=== PATIENT | female | born 1970 | race Native Hawaiian/Other Pacific Islander ===

== ENCOUNTER 2016-09-17 15:57 | Emergency (ER) | payer OTHER ==
[2016-09-17 16:04] VITALS: TEMP 98.5
[2016-09-17] MEDS ORDERED: SODIUM CHLORIDE 0.9% 1,000 ML IV ONE (17:01)
[2016-09-17 17:22] LABS: Basophils % (A) 0 %; CH 30.9; CHCM 34.3; Eosinophils # (A) 0.1 k/uL (0-0.7); Eosinophils % (A) 1 %; HGB 14.5 gm/dL (11.4-16.0); Luc # (Auto) 0.08; Luc % (Auto) 1; Lymphocytes # (A) 1.9 k/uL (1.0-4.8); Lymphocytes % (A) 16 %; MCH 30.4 pg (25.0-35.0); MCHC 33.6 g/dL (31.0-37.0); MCV 90.5 fL (80.0-100.0); Mean Platelet Volume 6.4; Monocytes # (A) 0.6 k/uL (0-1.0); Monocytes % (A) 5 %; Neutrophils # (A) 9.5 k/uL (1.3-7.7); Neutrophils % (A) 78 %; RBC 4.76 m/uL (3.80-5.40); RDW 12.9 % (11.5-15.5); WBC 12.2 k/uL (3.8-10.6); WBC (Perox) 12.46
[2016-09-17 17:30] LABS: Anion Gap 14 mmol/L; Blood Urea Nitrogen 11 mg/dL (7-17); Carbon Dioxide 27 mmol/L (22-30); Chloride 102 mmol/L (98-107); Glucose 126 mg/dL (74-99); Non-African American GFR(MDRD) 53 (>60 ml/min/1.73 sqM); Potassium 3.6 mmol/L (3.5-5.1); Sodium 143 mmol/L (137-145)
[2016-09-17 17:40] LABS: Amorphous Sediment,Urine Rare /hpf; Appearance,Urine Clear (Clear); Bacteria,Urine Occasional /hpf; Bilirubin,Urine Negative (Negative); Glucose,Urine (UA) Negative (Negative); Ketones,Urine Negative (Negative); Leukocyte Esterase,Urine Trace (Negative); Mucus,Urine Occasional /hpf; Nitrite,Urine Negative (Negative); PH, Urine 5.5 (5.0-8.0); Particle Count 4076; Protein,Urine Negative (Negative); RBC,Urine <1 /hpf (0-5); Specific Gravity,Urine 1.016 (1.001-1.035); Squamous Epithelial Cell,Urine 5 /hpf (0-4); UA Billing (MACRO vs. MICRO) MICRO; Urobilinogen,Urine <2.0 mg/dL (<2.0); WBC,Urine 4 /hpf (0-5)
--- NOTE | 2016-09-17 17:54 | ED ---
General Adult HPI - General Chief complaint: Extremity Injury, Lower Stated complaint: Almost syncope/Leg Pain Time Seen by Provider: 09/17/16 16:51 Source: patient, RN notes reviewed Mode of arrival: wheelchair Limitations: no limitations - History of Present Illness Initial comments: is a 46-year-old female presenting to the with chief complaint of feeling lightheaded while walking home from the doctor's today. Patient reports that she saw her primary care physician about a complaint of shaking legs while she fell as well as sleep with similar symptoms of restless leg syndrome and patient was discharged from her primary care provider with increased blood pressure medications. Patient reports that at that time she was given her legs started to feel somewhat shaky and she felt lightheaded and felt like she was unable to pass out. She didn't denies having any of the symptoms for. Patient does have a history of schizoaffective disorder. Patient denies any pain at this time. She denies any numbness or tingling in her lower extremities. She denies any lightheadedness or blurry vision at this time. - Related Data Home Medications Medication Instructions Recorded Confirmed ALPRAZolam [Xanax] 0.25 mg PO BID 09/17/16 09/17/16 Hydrochlorothiazide 25 mg PO DAILY 09/17/16 09/17/16 Lisinopril [Zestril] 10 mg PO BID 09/17/16 09/17/16 hydrALAZINE HCL [Apresoline] 50 mg PO TID 09/17/16 09/17/16 Previous Rx's Medication Instructions Recorded Loratadine [Claritin] 10 mg PO DAILY #14 tab 12/16/15 cloNIDine HCL [Catapres] 0.1 mg PO BID #14 tab 12/16/15 Allergies Allergy/AdvReac Type Severity Reaction Status Date / Time acetaminophen [From Vicodin] Allergy Unknown Verified 09/17/16 16:04 codeine Allergy Rash/Hives Verified 09/17/16 16:42 hydrocodone bitartrate Allergy Unknown Verified 09/17/16 16:04 [From Vicodin] Review of Systems ROS Statement: Those systems with pertinent positive or pertinent negative responses have been documented in the HPI. ROS Other: All systems not noted in ROS Statement are negative. Past Medical History Past Medical History: Asthma, Diabetes Mellitus, Hypertension, Thyroid Disorder History of Any Multi-Drug Resistant Organisms: None Reported Past Surgical History: Tonsillectomy Past Psychological History: Anxiety, Depression Smoking Status: Current some day smoker Past Alcohol Use History: None Reported Past Drug Use History: None Reported General Exam - General Exam Comments Initial Comments: TOR is a 46-year-old female. She does not appear to be in any acute distress. Limitations: no limitations General appearance: alert, in no apparent distress Head exam: Present: atraumatic, normocephalic, normal inspection Eye exam: Present: normal appearance, PERRL, EOMI. Absent: scleral icterus, conjunctival injection, periorbital swelling ENT exam: Present: normal exam, mucous membranes moist Neck exam: Present: normal inspection. Absent: tenderness, meningismus, lymphadenopathy Respiratory exam: Present: normal lung sounds bilaterally. Absent: respiratory distress, wheezes, rales, rhonchi, stridor Cardiovascular Exam: Present: regular rate, normal rhythm, normal heart sounds. Absent: systolic murmur, diastolic murmur, rubs, gallop, clicks GI/Abdominal exam: Present: soft, normal bowel sounds. Absent: distended, tenderness, guarding, rebound, rigid Extremities exam: Present: normal inspection, full ROM, normal capillary refill. Absent: tenderness, pedal edema, joint swelling, calf tenderness Back exam: Present: normal inspection Neurological exam: Present: alert, oriented X3, CN II-XII intact Psychiatric exam: Present: normal affect, normal mood Course Vital Signs 09/17/16 09/17/16 15:59 17:34 Temperature 98.5 F Pulse Rate 109 H Pulse Rate [ 95 Left Sitting] Pulse Rate [ 104 H Left Standing] Pulse Rate [ 84 Left Supine] Respiratory 18 16 Rate Blood Pressure 159/90 Blood Pressure 152/81 [Left Arm Sitting] Blood Pressure 128/84 [Left Arm Standing] Blood Pressure 138/75 [Left Arm Supine] O2 Sat by Pulse 98 97 Oximetry Medical Decision Making - Medical Decision Making Patient is a 46-year-old female presenting to the with a episode of syncope. She also reports symptoms of restless leg syndrome for a few weeks. Patient' s labs are reviewed and are all negative. Patient does have positive orthostatic hypertension. Patient was given 2 L bolus. Patient will be discharged at this time and instructed to follow-up with primary care provider in regards to symptoms of restless leg syndrome. Return parameters were discussed. - Lab Data Result diagrams: 09/17/16 17:10 09/17/16 17:10 Lab Results 09/17/16 09/17/16 09/17/16 Range/Units 17:10 17:10 17:21 WBC 12.2 H (3.8-10.6) k/uL RBC 4.76 (3.80-5.40) m/uL Hgb 14.5 (11.4-16.0) gm/dL Hct 43.0 (34.0-46.0) % MCV 90.5 (80.0-100.0) fL MCH 30.4 (25.0-35.0) pg MCHC 33.6 (31.0-37.0) g/dL RDW 12.9 (11.5-15.5) % Plt Count 261 (150-450) k/uL Neutrophils % 78 % Lymphocytes % 16 % Monocytes % 5 % Eosinophils % 1 % Basophils % 0 % Neutrophils # 9.5 H (1.3-7.7) k/uL Lymphocytes # 1.9 (1.0-4.8) k/uL Monocytes # 0.6 (0-1.0) k/uL Eosinophils # 0.1 (0-0.7) k/uL Basophils # 0.0 (0-0.2) k/uL Sodium 143 (137-145) mmol/L Potassium 3.6 (3.5-5.1) mmol/L Chloride 102 (98-107) mmol/L Carbon Dioxide 27 (22-30) mmol/L Anion Gap 14 mmol/L BUN 11 (7-17) mg/dL Creatinine 1.11 H (0.52-1.04) mg/dL Est GFR (MDRD) Af Amer >60 (>60 ml/min/1.73 sqM) Est GFR (MDRD) Non-Af 53 (>60 ml/min/1.73 sqM) Glucose 126 H (74-99) mg/dL Calcium 10.0 (8.4-10.2) mg/dL Urine Color Yellow Urine Appearance Clear (Clear) Urine pH 5.5 (5.0-8.0) Ur Specific [place] 1.016 (1.001-1.035) Urine Protein Negative (Negative) Urine Glucose (UA) Negative (Negative) Urine Ketones Negative (Negative) Urine Blood Negative (Negative) Urine Nitrate Negative (Negative) Urine Bilirubin Negative (Negative) Urine Urobilinogen <2.0 (<2.0) mg/dL Ur Leukocyte Esterase Trace H (Negative) Urine RBC <1 (0-5) /hpf Urine WBC 4 (0-5) /hpf Ur Squamous Epith Cells 5 H (0-4) /hpf Amorphous Sediment Rare H (None) /hpf Urine Bacteria Occasional H (None) /hpf Urine Mucus Occasional H (None) /hpf Urine Opiates Screen Not Detected (NotDetected) Ur Oxycodone Screen Not Detected (NotDetected) Urine Methadone Screen Not Detected (NotDetected) Ur Propoxyphene Screen Not Detected (NotDetected) Ur Barbiturates Screen Not Detected (NotDetected) U Tricyclic Antidepress Not Detected (NotDetected) Ur Phencyclidine Scrn Not Detected (NotDetected) Ur Amphetamines Screen Not Detected (NotDetected) U Methamphetamines Scrn Not Detected (NotDetected) U Benzodiazepines Scrn Detected H (NotDetected) Urine Cocaine Screen Not Detected (NotDetected) U Marijuana (THC) Screen Not Detected (NotDetected) 09/17/16 17:52 EKG shows normal sinus rhythm. No evidence of atrial or ventricular arrhythmias. Ventricular rate of 93 bpm. MD interval 160 ms. QRS duration 82 ms. QT/QTc is 342/425 ms. Disposition Clinical Impression: Orthostatic hypotension, Restless legs Disposition: HOME SELF-CARE Condition: Good Instructions: Syncope (ED), Restless Legs Syndrome (ED) Additional Instructions: Patient instructed to follow-up with primary care provider regards to restless legs. Patient also instructed follow-up with ophthalmology in regards to new glasses prescription. Patient is to return to the [facility] if any alarming signs or symptoms occur. Patient is to remain hydrated and to follow-up with primary care in 1-2 days. Time of Disposition: 18:07
[2016-09-17 18:17] VITALS: BP 128/94; PULSE 88; RESP 18
== END 2016-09-17 18:17 | disposition home or self-care (01) ==
LOC: EC 15:57
DX: I95.1 Orthostatic hypotension (principal); G25.81 Restless legs syndrome; F25.9 Schizoaffective disorder, unspecified; Z88.6 Allergy status to analgesic agent; Z88.5 Allergy status to narcotic agent; F41.9 Anxiety disorder, unspecified; F32.9 Major depressive disorder, single episode, unspecified; I10 Essential (primary) hypertension; F17.200 Nicotine dependence, unspecified, uncomplicated
CPT/HCPCS: 36415; 80048; 80306; 81001; 85025; 93005; 96360; 99284

== ENCOUNTER 2016-09-18 00:28 | Emergency (ER) | payer OTHER ==
[2016-09-18 00:35] VITALS: BP 123/82; PULSE 113; RESP 18; TEMP 98.4
--- NOTE | 2016-09-18 01:18 | ED ---
Dizziness HPI - General Chief Complaint: Syncope Stated Complaint: near syncope Time Seen by Provider: 09/18/16 00:45 Source: patient, RN notes reviewed Mode of arrival: wheelchair Limitations: no limitations - History of Present Illness Initial Comments: Patient is a 46-year-old feel presenting to the [facility] with chief complaint of near- syncope for the second time today. Patient was initially seen in the each see by myself and had a full workup and IV fluids. Patient reports that when she was going to sleep she felt like she was slightly dizzy and felt anxious. Patient reports that she is concerned that her risperidone has caused her to feel shaky and symptoms of lightheadedness. Patient reports that she has been taking this medication for approximately 1 year. Patient reports no dizziness or headache at this time. She denies any changes in her vision at this time. She states that she feels fine but was concerned about her previous symptoms and decided to come to the EC. - Related Data Home Medications Medication Instructions Recorded Confirmed ALPRAZolam [Xanax] 0.25 mg PO BID 09/17/16 09/17/16 Hydrochlorothiazide 25 mg PO DAILY 09/17/16 09/17/16 Lisinopril [Zestril] 10 mg PO BID 09/17/16 09/17/16 hydrALAZINE HCL [Apresoline] 50 mg PO TID 09/17/16 09/17/16 risperiDONE [RisperDAL] 2 mg PO HS 09/17/16 09/17/16 Previous Rx's Medication Instructions Recorded Loratadine [Claritin] 10 mg PO DAILY #14 tab 12/16/15 cloNIDine HCL [Catapres] 0.1 mg PO BID #14 tab 12/16/15 Allergies Allergy/AdvReac Type Severity Reaction Status Date / Time acetaminophen [From Vicodin] Allergy Unknown Verified 09/18/16 00:35 codeine Allergy Rash/Hives Verified 09/18/16 00:35 hydrocodone bitartrate Allergy Unknown Verified 09/18/16 00:35 [From Vicodin] Review of Systems ROS Statement: Those systems with pertinent positive or pertinent negative responses have been documented in the HPI. ROS Other: All systems not noted in ROS Statement are negative. Past Medical History Past Medical History: Asthma, Diabetes Mellitus, Hypertension, Thyroid Disorder History of Any Multi-Drug Resistant Organisms: None Reported Past Surgical History: Tonsillectomy Past Psychological History: Anxiety, Depression Smoking Status: Current some day smoker Past Alcohol Use History: None Reported Past Drug Use History: None Reported General Exam - General Exam Comments Initial Comments: Patient is a pleasant appearing 46-year-old female. She is on appear to be in any acute distress. Limitations: no limitations General appearance: alert, in no apparent distress Head exam: Present: atraumatic, normocephalic, normal inspection Eye exam: Present: normal appearance, PERRL, EOMI. Absent: scleral icterus, conjunctival injection, periorbital swelling ENT exam: Present: normal exam, mucous membranes moist Neck exam: Present: normal inspection. Absent: tenderness, meningismus, lymphadenopathy Respiratory exam: Present: normal lung sounds bilaterally. Absent: respiratory distress, wheezes, rales, rhonchi, stridor Cardiovascular Exam: Present: regular rate, normal rhythm, normal heart sounds. Absent: systolic murmur, diastolic murmur, rubs, gallop, clicks GI/Abdominal exam: Present: soft, normal bowel sounds. Absent: distended, tenderness, guarding, rebound, rigid Extremities exam: Present: normal inspection, full ROM, normal capillary refill. Absent: tenderness, pedal edema, joint swelling, calf tenderness Back exam: Present: normal inspection Neurological exam: Present: alert, oriented X3, CN II-XII intact Expanded Patient oriented to: Present: person, place, time Speech: Present: fluid speech Cranial nerves: EOM's Intact: Normal, Gag Reflex: Normal, Tongue Deviation: Normal Cerebellar function: Finger to Nose: Normal Upper motor neuron: Neal Neglect: Normal Sensory exam: Upper Extremity Light Touch: Normal, Lower Extremity Light Touch: Normal Motor strength exam: RUE: 5, LUE: 5, RLE: 5, LLE: 5 Eye Response: (4) open spontaneously Motor Response: (6) obeys commands Verbal Response: (5) oriented Carlos Total: 15 Psychiatric exam: Present: normal affect, normal mood Skin exam: Present: warm, dry, intact, normal color. Absent: rash Course Vital Signs 09/18/16 00:33 Temperature 98.4 F Pulse Rate 113 H Respiratory 18 Rate Blood Pressure 123/82 O2 Sat by Pulse 98 Oximetry Medical Decision Making - Medical Decision Making Patient is a 46-year-old female with chief complaint of near-syncope for the second time today. Her initial visit she was given a full workup and did have some positive orthostatic hyp hypotension. At that point patient was given fluid boluses. Patient also describes symptoms of restless leg syndrome. I discussed with the patient and we've exhausted all test while in the [facility] today. Is also discussed the patient's caregiver. Advised patient that she needs to follow-up with her neurologist, primary care physician as well as a possible bar pointer for tilt table test regards to this continued near-syncope and symptoms of orthostatic hypotension. I advise patient she needs remain hydrated. Patient declined having any further imaging or laboratory studies on the for the second time today. There is a possibility that her symptoms could be related to her psychiatric medication risperidone however I do not feel comfortable discontinuing this vacation for the patient. I advised her to follow-up with a psychiatrist. I discussed this case with Dr. Levin he is in agreement with the treatment plan and we will hold on doing any other labs or imaging studies at this time is patient is nonsymptomatic at this time. Return parameters were discussed and patient and patient's caregiver understand treatment plan will comply. Disposition Clinical Impression: Anxiousness, Paresthesias Disposition: HOME SELF-CARE Condition: Good Additional Instructions: Patient instructed to follow-up with primary care physician, neurologist as well as psychiatrist in regards to her symptoms. Patient is advised to continue to remain hydrated. Patient instructed to continue to use her Risperdal medication and do not discontinue until advised by a psychiatrist. Referrals: Anthony Ashford MD [Primary Care Provider] - 1-2 days Adore Khan MD [STAFF PHYSICIAN] - 1-2 days Traci Rider MD [Medical Doctor] - 1-2 days Time of Disposition: 01:16
== END 2016-09-18 01:25 | disposition home or self-care (01) ==
LOC: EC 00:28
DX: R55 Syncope and collapse (principal); F41.9 Anxiety disorder, unspecified; R42 Dizziness and giddiness; I10 Essential (primary) hypertension; F32.9 Major depressive disorder, single episode, unspecified; F17.200 Nicotine dependence, unspecified, uncomplicated; R20.9 Unspecified disturbances of skin sensation; I95.1 Orthostatic hypotension; Z79.899 Other long term (current) drug therapy; Z88.5 Allergy status to narcotic agent; Z88.6 Allergy status to analgesic agent
CPT/HCPCS: 70450; 99283

== ENCOUNTER → 2016-09-18 | Outpatient (CLI) | payer OTHER ==
--- NOTE | 2016-09-18 13:01 | CT ---
EXAMINATION TYPE: CT brain wo con DATE OF EXAM: 09/18/2016 12:56 PM COMPARISON: Previous study dated 11/24/2013. HISTORY: Syncope CT DLP: 961.00 mGycm Automated exposure control for dose reduction was used. FINDINGS: Central structures are midline. There is no evidence of hydrocephalus. No acute focal lesion, mass ef fect or midline shift is seen. I do not see evidence of intracranial blood. Visualized portions of the paranasal sinuses and mastoids are clear. No depressed skull fracture is s een. IMPRESSION: NORMAL CT SCAN OF THE BRAIN.
== END | disposition home or self-care (01) ==
LOC: RADCTMAIN 12:18
PROVIDERS: ATTEND Family Medicine
DX: R55 Syncope and collapse (principal)
CPT/HCPCS: 70450

== ENCOUNTER 2016-12-03 12:44 | Inpatient (IN) | payer MEDICAID ==
[2016-12-03] MEDS ORDERED: MAGNESIUM HYDROXIDE 2,400 MG/10 ML CUP PO PRN (13:14)
[2016-12-03] MEDS ORDERED: MAG HYDROX/AL HYDROX/SIMETH 30 ML CUP PO PRN (13:14)
[2016-12-03] MEDS ORDERED: ACETAMINOPHEN TAB 325 MG TAB PO PRN (13:14)
[2016-12-03] MEDS ORDERED: IPRATROPIUM-ALBUTEROL 3 ML NEB INHALATION PRN (13:42)
[2016-12-03] MEDS: hydrALAZINE HCL 50 MG TAB PO SCH ×2 (16:34→20:50)
[2016-12-03] MEDS: GENTAMICIN 0.3% OPHTH OINT 3.5 GM TUBE BOTH EYES SCH ×2 (16:34→16:38)
[2016-12-03 17:02] VITALS: BMI 31.4
[2016-12-03] MEDS: LISINOPRIL 10 MG TAB PO SCH (20:50)
[2016-12-03] MEDS: cloNIDine HCL 0.1 MG TAB PO SCH (20:50)
[2016-12-03] MEDS: METOPROLOL TARTRATE 50 MG TAB PO SCH (20:50)
[2016-12-03] MEDS: QUEtiapine 200 MG TAB PO SCH (20:50)
[2016-12-04] MEDS: GENTAMICIN 0.3% OPHTH OINT 3.5 GM TUBE BOTH EYES SCH ×4 (00:41→23:20)
[2016-12-04] MEDS ORDERED: NICOTINE 14MG/24HR PATCH TRANSDERM SCH (09:00)
[2016-12-04] MEDS: cloNIDine HCL 0.1 MG TAB PO SCH (09:37)
[2016-12-04] MEDS: HYDROCHLOROTHIAZIDE 25 MG TAB PO SCH (09:38)
[2016-12-04] MEDS: METOPROLOL TARTRATE 50 MG TAB PO SCH ×2 (09:38→20:35)
[2016-12-04] MEDS: hydrALAZINE HCL 50 MG TAB PO SCH ×3 (09:38→20:35)
[2016-12-04] MEDS: LISINOPRIL 10 MG TAB PO SCH ×2 (09:38→20:34)
[2016-12-04] MEDS: FLUTICASONE 50MCG/SPRAY NASAL 16GM EA NOSTRIL SCH (09:38)
[2016-12-04] MEDS: LORATADINE 10 MG TAB PO SCH (09:38)
[2016-12-04] MEDS: risperiDONE 2 MG TAB PO SCH (09:39)
[2016-12-04] MEDS: NICOTINE 14MG/24HR PATCH TRANSDERM SCH (09:39)
--- NOTE | 2016-12-04 16:16 | P.HP ---
Psychiatric H&P - . H&P Date: 12/04/16 History & Physical: IDENTIFYING DATA: Ms Gordon is a 46-year-old single female transferred from medicine service following an episode of acute encephalopathy. According to the medical record she was found by local police swimming in [facility] during inclement weather. She told the admitting physician that she had jumped out of the [place]. She was alert but confused. She was severely dehydrated and had acute renal dysfunction. She had elevated CK and early stage of rhabdomyolysis. HISTORY OF PRESENT ILLNESS: Aafter the acute encephalopathy cleared she was unable to explain the events that led to the hospitalization. On the day of her presentation [facility] she impulsively went for squamous [facility]. She was unable to explain the reason for going into the water. She denied that she had entered the water in a suicide attempt. She denied psychotic symptoms such as auditory or visual hallucinations, ideas reference, thought insertion, thought broadcasting or thought control. She denied that she has been drinking alcohol or using drugs to get high, help her sleep or change her mood. She denied that she had been noncompliant with prescribed medications. Her outpatient psychiatrist had reduced her medications recently; discontinue risperidone and decreasing the dose of Seroquel from 400 mg 200 mg per day. PAST PSYCHIATRIC HISTORY: According to the information from [facility] she has a history of a undifferentiated schizophrenia. Her last appointment appears to have been on 11/10/2016. Her only psychotropic medication was Seroquel 200 mg at bedtime. Her primary care provider prescribes Claritin 10 mg daily hydralazine 25 mg 3 times a day, lisinopril 10 mg twice a day and Xanax 0.25 one by mouth twice a day. She was transferred to this unit from the [facility] nursing [facility] on 12/05/2015. She had been arrested on several charges including assaulting a police sergeant, resisting arrest, disorderly person and open intoxicated in public space. She was confused and disoriented in nursing home. The police documents note that she " stood all night complaining he still looking at [place] for hours". The history and physical notes that prior to admission indicated that she had jumped into [facility]. PAST MEDICAL HISTORY: Her discharge diagnoses from medicine service included metabolic encephalopathy secondary to dehydration, acute renal failure secondary to dehydration, metabolic acidosis, elevated CK with rhabdomyolysis secondary to hypothermia and history of hypertension. ALLERGIES: Codeine SUBSTANCE USE HISTORY: She denied use of alcohol or drugs. She denied participation in a substance abuse treatment program. FAMILY PSYCHIATRIC/SUBSTANCE USE HISTORY: She is unaware of a family history of mental illness. LEGAL HISTORY: She was sentenced with assaulting a police sergeant and resisting arrest, disorderly person, only intoxicants in [facility] on 01/17/2016. OWI and operating without a license on person 10/31/2012 SOCIAL HISTORY: She lives alone in her own home and support her son. She shares custody with her boyfriend of her 13-year-old daughter. She is unemployed and her only income is child support payments. She has limited social supports. Her mother and her sister in [place].. MENTAL STATUS EXAM: She presented as a casually groomed 46-year-old male who was pleasant on approach. He denied contact and attended to the interview. She had no distinguishing features or prominent physical abnormalities. She had a blunted facial expression. She was alert and oriented to person, place and time. She showed slight psychomotor retardation but no abnormal involuntary movements. Her gait was slow but steady. Her speech was spontaneous with decreased rate, rhythm and volume. She had no articulation difficulties. Her affect was blunted but stable and appropriate. She denied suicidal ideation or wishes. She denied homicidal ideation. She denied depressive cognitions such as hopelessness, helplessness or worthlessness. She noted express obsessions, ruminations, phobias or ideas of reference. Her thinking was concrete. Associations were coherent and logical. She denied hallucinations and did not appear to responding to internal stimuli. Global impression of intellect is average to below. She has limited awareness of her illness. STRENGTHS: Stable housing, engagement with mental health treatment WEAKNESSES: Chronic mental illness affecting judgment. IMPRESSION: She is a 46-year-old woman with history of a chronic mental illness diagnosed schizophrenia. She presented to the Medical Center with acute encephalopathy secondary to acute dehydration and hypothermia. The encephalopathy has resolved. She is unable to explain the circumstances that led to this admission. She is unable explain the reason for going into the water and such weather as to produce hypothermia. She denies suicidal ideation , plan or intent. She is denying acute psychotic symptoms. I suspect that she became psychotic from noncompliance with medication.. PRINCIPLE DIAGNOSIS: Schizophrenia chronic undifferentiated type RECOMMENDATION: Begin inpatient psychiatric hospitalization. Continue Seroquel 200 mg at bedtime restart risperidone 2 mg daily. Continue DuoNeb 0.5 mg every 4 when necessary for shortness of breath, clonidine 0.1 mg twice a day, Flonase nasal spray, Genentech 0.3% ophthalmic ointment both eyes daily at bedtime, Apresoline 50 mg 3 times a day, HydroDIURIL 25 mg daily, Zestril 10 mg twice a day, Claritin 10 mg daily and Lopressor 50 mg twice a day. Obtain clinical information from [facility]. Consult medicine service for initial physical exam and medical history. Encourage participation in therapeutic groups and activities. Evaluate clinical status response to treatment on a daily basis. Allergies Allergy/AdvReac Type Severity Reaction Status Date / Time codeine Allergy Rash/Hives Verified 12/03/16 12:16 Vital Signs Temp 98.2 F 12/04/16 07:04 Pulse 63 12/04/16 07:04 Resp 16 12/04/16 07:04 BP 111/68 12/04/16 07:04 Pulse Ox Intake & Output 12/03/16 12/04/16 12/04/16 18:59 06:59 18:59 Weight 80.5 kg 12/04/16 08:39 12/04/16 13:34 12/04/16 16:13
[2016-12-04 16:57] LABS: Anion Gap 11 mmol/L; Blood Urea Nitrogen 14 mg/dL (7-17); Calcium 8.9 mg/dL (8.4-10.2); Carbon Dioxide 30 mmol/L (22-30); Chloride 103 mmol/L (98-107); Glucose 100 mg/dL (74-99); Non-African American GFR(MDRD) 56 (>60 ml/min/1.73 sqM); Potassium 4.3 mmol/L (3.5-5.1); Sodium 144 mmol/L (137-145)
--- NOTE | 2016-12-04 19:16 | CONS ---
DATE OF CONSULTATION: REASON FOR CONSULTATION: Management of hypertension and recommendations regarding antihypertensive medications and medical clearance. Patient is a 46-year-old with history of schizophrenia. Does have flat affect. Was admitted to psychiatric floor for acute psychosis. Patient's blood pressure was elevated during admission due to psychotic episodes. Patient is on multiple antihypertensive medications, including Lisinopril, hydrochlorothiazide, hydralazine, metoprolol and clonidine. Blood pressure is 111/72, because of which I am cutting down the clonidine, which has a lot of side effects and can contribute to depression as well. Just monitor the blood pressure. If at all her blood pressure goes up, beta dameon can be increased, and if her heart rate goes up, beta dameon can be increased. REVIEW OF SYSTEMS: CONSTITUTIONAL: No fever, no malaise, no fatigue. HEENT: No recent visual problems or hearing problems. Denied any sore throat. CARDIOVASCULAR: No chest pain, orthopnea, PND, no palpitations, no syncope. PULMONARY: No shortness of breath, no cough, no hemoptysis. GASTROINTESTINAL: No diarrhea, no nausea, no vomiting, no abdominal pain. Normoactive bowel sounds. NEUROLOGICAL: No headaches, no weakness, no numbness. HEMATOLOGICAL: Denies any bleeding or petechiae. GENITOURINARY: Denies any burning micturition, frequency, or urgency. MUSCULOSKELETAL/RHEUMATOLOGICAL: Denies any joint pain, swelling, or any muscle pain. ENDOCRINE: Denies any polyuria or polydipsia. PSYCHIATRY: Defer to the psychiatrist. The rest of the 14 point review of systems is negative. Past medical history is significant for: 1. Hypertension. 2. Schizophrenia. 3. Anxiety disorder. SOCIAL HISTORY: Patient does smoke. Denied any alcohol abuse or any drug abuse. FAMILY HISTORY: Significant for hypertension. PHYSICAL EXAMINATION: VITAL SIGNS: Temperature 98.3, pulse of 63, respiratory rate of 16. Blood pressure is 111/72. Saturating at 99% on room air. GENERAL: The patient is alert and oriented x3, not in any acute distress. Well developed, well nourished. HEENT: Pupils are round and equally reacting to light. EOMI. No scleral icterus. No conjunctival pallor. Normocephalic, atraumatic. No pharyngeal erythema. No thyromegaly. CARDIOVASCULAR: S1 and S2 present. No murmurs, rubs, or gallops. PULMONARY: Chest is clear to auscultation, no wheezing or crackles. ABDOMEN: Soft, nontender, nondistended, normoactive bowel sounds. No palpable organomegaly. MUSCULOSKELETAL: No joint swelling or deformity. EXTREMITIES: No cyanosis, clubbing, or pedal edema. NEUROLOGICAL: Gross neurological examination did not reveal any focal deficits. SKIN: No rashes. PSYCHIATRIC: Defer to Psychiatry. LABORATORY DATA: TSH is within normal limits. ASSESSMENT AND PLAN: 1. Hypertension. Management as mentioned in the interval history itself. Hold off on clonidine. Watch the blood pressure. 2. Schizophrenia with psychotic episode. Management as per primary service. 3. Nicotine abuse. Counseling was provided. Thank you for letting me participate in this patient's care. Will sign off. Please call us back if needed.
[2016-12-04] MEDS: QUEtiapine 200 MG TAB PO SCH (20:35)
[2016-12-05] MEDS: GENTAMICIN 0.3% OPHTH OINT 3.5 GM TUBE BOTH EYES SCH ×3 (09:22→23:31)
[2016-12-05] MEDS: NICOTINE 14MG/24HR PATCH TRANSDERM SCH (09:22)
[2016-12-05] MEDS: hydrALAZINE HCL 50 MG TAB PO SCH ×3 (09:23→20:42)
[2016-12-05] MEDS: LORATADINE 10 MG TAB PO SCH (09:23)
[2016-12-05] MEDS: HYDROCHLOROTHIAZIDE 25 MG TAB PO SCH (09:23)
[2016-12-05] MEDS: LISINOPRIL 10 MG TAB PO SCH ×2 (09:23→20:42)
[2016-12-05] MEDS: FLUTICASONE 50MCG/SPRAY NASAL 16GM EA NOSTRIL SCH (09:23)
[2016-12-05] MEDS: METOPROLOL TARTRATE 50 MG TAB PO SCH ×2 (09:24→20:42)
[2016-12-05] MEDS: risperiDONE 2 MG TAB PO SCH (09:24)
--- NOTE | 2016-12-05 19:41 | P.PN ---
Progress Note - Text Date of service: 12/05/2016 Chief complaint: "Feeling okay" Subjective: The patient has been seeing today as follow-up, chart reviewed, case discussed with the treatment team. The patient presented was very flat affect, guarded, evasive in her answers. She reports improvement of her symptoms and she was inquiring about discharge. She denies feeling suicidal and minimize her depression. She denies any auditory or visual hallucinations, and denies paranoid ideation. Patient minimized and anxiety and she stated that she feels anxious about being hospitalized. The patient looks paranoid, guarded, and probably preoccupied with internal stimuli. The patient denies any manic symptoms including sustained period of time with elevated or irritable mood, impulsive or irrational behavior, inflated self- esteem. Review of other systems: Patient denies any physical symptoms besides what has been mentioned above. No problems was presenting no chest pain reported today. Objective: Vitals has been reviewed. Mental status examination; Appearance: The patient appears older than stated age, adequately groomed, no specific features. Gait/posture: Normal gait and posture, Normal arm was swinging: No abnormal movements. Attitude and behavior: Not engaged, partially cooperative, intermittent eye contact. Motor activity: Decreased psychomotor activity Speech: Soft, slow Mood: Anxious Affect: Flat Thought form: Paranoid, but goal-directed, linear, coherent. Thought content: denies suicidal thoughts, denies homicidal thoughts, denies intentions or plans. Perception: Denies any auditory or visual hallucinations, but appears responding to internal stimuli. Attention: No impairment. Patient was able to repeat serial 7. Orientation: Patient patient was fully oriented to time place person and situation. Insight: Patient has limited insight about his psychiatric disorder. Judgment: Patient has limited judgment about his psychiatric treatment. Assessment: Unspecified psychosis. Rule out schizophrenia. Plan: Continue Seroquel 200 mg by mouth at bedtime for psychotic symptoms. Discontinue risperidone. Continue inpatient level of care for further stabilization and monitoring of psychiatric symptoms.
[2016-12-05] MEDS: QUEtiapine 200 MG TAB PO SCH (20:42)
[2016-12-06] MEDS: GENTAMICIN 0.3% OPHTH OINT 3.5 GM TUBE BOTH EYES SCH ×3 (09:36→23:53)
[2016-12-06] MEDS: FLUTICASONE 50MCG/SPRAY NASAL 16GM EA NOSTRIL SCH (09:36)
[2016-12-06] MEDS: NICOTINE 14MG/24HR PATCH TRANSDERM SCH (09:37)
[2016-12-06] MEDS: HYDROCHLOROTHIAZIDE 25 MG TAB PO SCH (09:38)
[2016-12-06] MEDS: LORATADINE 10 MG TAB PO SCH (09:38)
[2016-12-06] MEDS: LISINOPRIL 10 MG TAB PO SCH ×2 (09:38→20:41)
[2016-12-06] MEDS: METOPROLOL TARTRATE 50 MG TAB PO SCH ×2 (09:38→20:42)
[2016-12-06] MEDS: hydrALAZINE HCL 50 MG TAB PO SCH ×3 (09:38→20:41)
--- NOTE | 2016-12-06 17:03 | P.PN ---
Progress Note - Text Date of service: 12/06/2016 Chief complaint: "And feeling much better" Subjective: The patient has been seeing a today as follow-up, chart reviewed, case discussed with the treatment team. The patient continued to report stability of her mood and he denies depression, anxiety, or mood symptoms. Patient presented with flat affect, staring eye contact, and very evasive with one word answer for most of the questions. The patient denies any auditory or visual hallucinations, and denies paranoid ideation. Patient looks guarded, and probably preoccupied with internal stimuli. The patient denies any manic symptoms including sustained period of time with elevated or irritable mood, impulsive or irrational behavior, inflated self-esteem. Review of other systems: Patient denies any physical symptoms besides what has been mentioned above. No breathing problems , no chest pain reported today. Objective: Vitals has been reviewed. Mental status examination; Appearance: The patient appears older than stated age, adequately groomed, no specific features. Gait/posture: Normal gait and posture, Normal arm was swinging: No abnormal movements. Attitude and behavior: Not engaged, partially cooperative, staring eye contact. Motor activity: Decreased psychomotor activity Speech: Soft, slow Mood: Anxious Affect: Flat Thought form: Paranoid, guarded, but goal-directed, linear, coherent. Thought content: denies suicidal thoughts, denies homicidal thoughts, denies intentions or plans. Perception: Denies any auditory or visual hallucinations, but appears responding to internal stimuli. Attention: No impairment. Patient was able to repeat serial 7. Orientation: Patient patient was fully oriented to time place person and situation. Insight: Patient has limited insight about his psychiatric disorder. Judgment: Patient has limited judgment about his psychiatric treatment. Assessment: Unspecified psychosis. Rule out schizophrenia. Plan: Continue Seroquel 200 mg by mouth at bedtime for psychotic symptoms. Continue inpatient level of care for further stabilization and monitoring of psychiatric symptoms.
[2016-12-06] MEDS: QUEtiapine 200 MG TAB PO SCH (20:42)
[2016-12-07 07:48] VITALS: TEMP 97.9
[2016-12-07] MEDS: NICOTINE 14MG/24HR PATCH TRANSDERM SCH (09:50)
[2016-12-07] MEDS: FLUTICASONE 50MCG/SPRAY NASAL 16GM EA NOSTRIL SCH (09:50)
[2016-12-07] MEDS: GENTAMICIN 0.3% OPHTH OINT 3.5 GM TUBE BOTH EYES SCH (09:50)
[2016-12-07] MEDS: hydrALAZINE HCL 50 MG TAB PO SCH (09:51)
[2016-12-07] MEDS: LORATADINE 10 MG TAB PO SCH (09:51)
[2016-12-07] MEDS: HYDROCHLOROTHIAZIDE 25 MG TAB PO SCH (09:51)
[2016-12-07] MEDS: METOPROLOL TARTRATE 50 MG TAB PO SCH (09:51)
[2016-12-07] MEDS: LISINOPRIL 10 MG TAB PO SCH (09:51)
[2016-12-07 10:23] VITALS: BP 119/69; PULSE 76; RESP 20
--- NOTE | 2016-12-07 15:50 | P.DS ---
Providers Date of admission: 12/03/16 12:44 Attending physician: Natan Qureshi MD Consults: 12/03/16 13:22 Consult Physician Routine Consulting Provider: Anthony Ashford Consult Reason/Comments: H and P and medical management Do you want consulting provider notified?: Yes Primary care physician: Anthony Crenshaw Dejon - Discharge Diagnosis(es) (1) Schizophrenia Status: Chronic Priority: High (2) Poor compliance with medication Status: Acute Priority: High Hospital Course: marina Gordon is a 46-year-old single female transferred from medicine service following an episode of acute encephalopathy. According to the medical record she was found by local police swimming in [facility] during inclement weather. She told the admitting physician that she had jumped out of the [place]. She was alert but confused. She was severely dehydrated and had acute renal dysfunction. She had elevated CK and early stage of rhabdomyolysis. After the acute encephalopathy cleared she was unable to explain the events that led to the hospitalization. On the day of her [facility] she impulsively went for squamous [facility]. She was unable to explain the reason for going into the water. She denied that she had entered the water in a suicide attempt. She denied psychotic symptoms such as auditory or visual hallucinations, ideas reference, thought insertion, thought broadcasting or thought control. She denied that she has been drinking alcohol or using drugs to get high, help her sleep or change her mood. She denied that she had been noncompliant with prescribed medications. Her outpatient psychiatrist had reduced her medications recently; discontinue risperidone and decreasing the dose of Seroquel from 400 mg 200 mg per day. According to the information from [facility] she has a history of a undifferentiated schizophrenia. Her last appointment appears to have been on 11/10/2016. Her only psychotropic medication was Seroquel 200 mg at bedtime. Her primary care provider prescribes Claritin 10 mg daily hydralazine 25 mg 3 times a day, lisinopril 10 mg twice a day and Xanax 0.25 one by mouth twice a day. She was transferred to this unit from the [facility] [place] [facility] on 12/05/2015. She had been arrested on several charges including assaulting a railroad police officer, resisting arrest, disorderly person and open intoxicated in public space. She was confused and disoriented in [place] [facility]. The police documents note that she " stood all night complaining he still looking at [place] for hours". The history and physical notes that prior to admission indicated that she had jumped into [facility]. We admitted her to the psychiatric unit involuntarily under the care of this personal lines underwriter. We provided a biopsychosocial assessment. The home service consultant palliative senior np completed the initial physical exam and medical history undiagnosed hypertension and nicotine use. He recommended to continue her antihypertensive medications including Apresoline 50 mg by mouth 3 times a day, HydroDIURIL 25 mg daily, Zestril 10 mg twice a day and Lopressor 50 mg twice a day. She signed for a voluntary admission after she arrived on the psychiatric unit. She was unable to explain the reason for her abrupt change in her mental status. However, she revealed that she had been taking half of the prescribed Seroquel out of concern over weight gain. We suspect that her decompensation and subsequent medical and psychiatric hospitalizations were the result of the decrease in dose of the Seroquel. She posed no management problem and displayed no episodes of behavioral dyscontrol. She denied suicidal or homicidal ideation. She denied psychotic symptoms such as auditory or visual hallucinations, ideas reference, thought insertion, thought broadcasting or thought control. She had a flat affect and poverty of thought and content of thought. She agreed to aftercare to [facility] and to continue with her prescribed dose of Seroquel. Patient Condition at Discharge: Stable Plan - Discharge Summary Discharge Medication List ALPRAZolam [Xanax] 0.25 mg PO BID 11/30/16 [History] Fluticasone Nasal [place] [Flonase Nasal [place]] 1 spray EA NOSTRIL DAILY 11/30/16 [History] Hydrochlorothiazide [Hydrodiuril] 25 mg PO DAILY 11/30/16 [History] Lisinopril [Zestril] 10 mg PO BID 11/30/16 [History] Loratadine [Claritin] 10 mg PO DAILY 11/30/16 [History] Metoprolol Tartrate [Lopressor] 50 mg PO BID 11/30/16 [History] QUEtiapine [SEROquel] 200 mg PO HS 11/30/16 [History] hydrALAZINE HCL [Apresoline] 50 mg PO TID 11/30/16 [History] Acetaminophen Tab [Tylenol] 650 mg PO Q4HR PRN #0 tab 12/02/16 [Rx] Gentamicin 0.3% Ophth Oint [Gentak 0.3% Ophth Oint] 1 applic BOTH EYES Q8HR gm 12/02/16 [Rx] Ipratropium-Albuterol Nebulize [Duoneb 0.5 mg-3 mg/3 ml Soln] 3 ml INHALATION RT -Q4H PRN #0 ampul.neb 12/02/16 [Rx] Nicotine 14Mg/24Hr Patch [Habitrol] 1 patch TRANSDERM DAILY patch 12/02/16 [Rx] Follow up [facility]ment[facility] - 12/14/16 3:00 pm (Dr Adkins ) [facility] [Outside] - 12/10/16 2:00 pm (Dulce Crenshaw ) Patient Instructions/Handouts: How to Stop Smoking (DC) Discharge Disposition: HOME SELF-CARE
== END 2016-12-07 14:33 | disposition home or self-care (01) | DRG 885 ==
LOC: MERGE 12:44 → 3MHU 12:44
PROVIDERS: ADMIT Psychiatry & Neurology Psychiatry; ATTEND Psychiatry & Neurology Psychiatry
DX: F20.3 Undifferentiated schizophrenia (principal); Z91.14 Patient's other noncompliance with medication regimen; I10 Essential (primary) hypertension; F17.200 Nicotine dependence, unspecified, uncomplicated; F41.9 Anxiety disorder, unspecified; Z79.899 Other long term (current) drug therapy; Z82.49 Family history of ischemic heart disease and other diseases of the circulatory system
CPT/HCPCS: 80048; 84443

== ENCOUNTER → 2016-12-25 | Outpatient (CLI) | payer OTHER ==
[2016-12-25 11:00] LABS: Blood Urea Nitrogen 17 mg/dL (7-17); Cholesterol 165 mg/dL (<200); Creatine Kinase 126 U/L (30-135); Glucose 86 mg/dL (74-99); HDL Cholesterol 44 mg/dL (40-60); Magnesium 1.8 mg/dL (1.6-2.3); Non-African American GFR(MDRD) 52 (>60 ml/min/1.73 sqM); Triglycerides 105 mg/dL (<150)
== END | disposition home or self-care (01) ==
LOC: LABWHC1 10:17
PROVIDERS: ATTEND Psychiatry & Neurology Psychiatry
DX: Z51.81 Encounter for therapeutic drug level monitoring (principal); Z79.899 Other long term (current) drug therapy
CPT/HCPCS: 36415; 80061; 82550; 82565; 82947; 83735; 84439; 84443; 84520

== ENCOUNTER → 2017-02-11 | Outpatient (CLI) | payer OTHER ==
[2017-02-11 11:06] LABS: Lithium 0.9 mmol/L
== END | disposition home or self-care (01) ==
LOC: LABWHC1 09:58
PROVIDERS: ATTEND Psychiatry & Neurology Psychiatry
DX: Z51.81 Encounter for therapeutic drug level monitoring (principal); Z79.899 Other long term (current) drug therapy
CPT/HCPCS: 36415; 80178; 82565; 84439; 84443; 84520

== ENCOUNTER → 2017-07-12 | Outpatient (CLI) | payer OTHER ==
[2017-07-12 11:43] LABS: Blood Urea Nitrogen 16 mg/dL (7-17); Non-African American GFR(MDRD) 50 (>60 ml/min/1.73 sqM)
[2017-07-12 12:20] LABS: Lithium 0.7 mmol/L
== END | disposition home or self-care (01) ==
LOC: LABWHC1 09:41
PROVIDERS: ATTEND Psychiatry & Neurology Psychiatry
DX: Z51.81 Encounter for therapeutic drug level monitoring (principal); Z79.899 Other long term (current) drug therapy
CPT/HCPCS: 36415; 80178; 82565; 84439; 84443; 84520

== ENCOUNTER 2018-01-28 07:09 | Emergency (ER) | payer OTHER ==
--- NOTE | 2018-01-28 07:56 | ED ---
General Adult HPI - General Chief complaint: Psychiatric Symptoms Stated complaint: mental health Time Seen by Provider: 01/28/18 07:23 Source: patient, RN notes reviewed Mode of arrival: ambulatory Limitations: no limitations - History of Present Illness Initial comments: Patient is a pleasant 47-year-old female presenting to the emergency department because she is hearing voices. Patient states she was having an out of the park and the police brought her here. Patient does admit to hearing voices. Patient is unclear what the voices are saying. Patient does feel somewhat paranoid however is not having visual hallucinations. Patient did not take her medication last night however otherwise has been taking her medicine. No suicidal or homicidal thoughts. No physical complaints. No alcohol. Occasional smoking. Patient has not been eating or sleeping well for the past few days. Patient admits to feeling paranoid and having some racing thoughts. - Related Data Home Medications Medication Instructions Recorded Confirmed Hydrochlorothiazide [Hydrodiuril] 25 mg PO DAILY 01/28/18 01/28/18 [place]ing Carbonate 600 mg PO HS 01/28/18 01/28/18 Loratadine [Claritin] 10 mg PO DAILY 01/28/18 01/28/18 cloNIDine HCL [Catapres] 0.1 mg PO BID 01/28/18 01/28/18 Allergies Allergy/AdvReac Type Severity Reaction Status Date / Time acetaminophen [From Vicodin] Allergy Unknown Verified 09/18/16 00:35 codeine Allergy Rash/Hives Verified 09/18/16 00:35 hydrocodone bitartrate Allergy Unknown Verified 09/18/16 00:35 [From Vicodin] Review of Systems ROS Statement: Those systems with pertinent positive or pertinent negative responses have been documented in the HPI. ROS Other: All systems not noted in ROS Statement are negative. Constitutional: Denies: fever Eyes: Denies: eye pain ENT: Denies: ear pain Respiratory: Denies: dyspnea Cardiovascular: Denies: chest pain Endocrine: Denies: fatigue Gastrointestinal: Denies: abdominal pain Genitourinary: Denies: dysuria Musculoskeletal: Denies: back pain Skin: Denies: rash Neurological: Denies: weakness Psychiatric: Denies: suicidal thoughts Past Medical History Past Medical History: Asthma, Diabetes Mellitus, Hypertension, Thyroid Disorder Additional Past Medical History / Comment(s): schizophrenia, psychotic disorder , anxiety History of Any Multi-Drug Resistant Organisms: None Reported Past Surgical History: Tonsillectomy Additional Past Anesthesia/Blood Transfusion Reaction / Comment(s): no previous blood transfusions Past Psychological History: Anxiety, Depression, Schizoaffective Disorder Smoking Status: Current every day smoker Past Alcohol Use History: None Reported Past Drug Use History: Marijuana - Past Family History Mother Family Medical History: Hypertension General Exam Limitations: no limitations General appearance: alert, in no apparent distress Head exam: Present: atraumatic Eye exam: Present: normal appearance, PERRL ENT exam: Present: normal oropharynx Neck exam: Present: normal inspection Respiratory exam: Present: normal lung sounds bilaterally Cardiovascular Exam: Present: regular rate, normal rhythm GI/Abdominal exam: Present: soft. Absent: tenderness Extremities exam: Present: normal inspection Neurological exam: Present: alert Psychiatric exam: Present: normal affect, normal mood Skin exam: Present: normal color Course Vital Signs 01/28/18 01/28/18 07:13 11:27 Temperature 98.7 F 99.2 F Pulse Rate 66 90 Respiratory 18 20 Rate Blood Pressure 150/92 115/58 O2 Sat by Pulse 98 95 Oximetry Medical Decision Making - Medical Decision Making Patient was seen by mental health services who does recommend discharge. They did set up follow-up for later today as well as the weekend. Disposition Clinical Impression: Schizophrenia Disposition: HOME SELF-CARE Condition: Stable Instructions: Schizophrenia (ED) Additional Instructions: Do not miss any doses of your medication. Please follow-up with mental health services today and this weekend as planned. Please return to emergency department for increased hallucinations, not feeling safe, thoughts of self-harm , worsening symptoms or other concerns. Is patient prescribed a controlled substance at d/c from ED?: No Referrals: Anthony Ashford MD [Primary Care Provider] - 1-2 days Time of Disposition: 11:32
[2018-01-28 11:28] VITALS: BP 115/58; PULSE 90; RESP 20; TEMP 99.2
== END 2018-01-28 11:44 | disposition home or self-care (01) ==
LOC: EC 07:09
DX: F20.9 Schizophrenia, unspecified (principal); I10 Essential (primary) hypertension; F32.9 Major depressive disorder, single episode, unspecified; F41.9 Anxiety disorder, unspecified; F17.200 Nicotine dependence, unspecified, uncomplicated; Z79.899 Other long term (current) drug therapy; Z88.5 Allergy status to narcotic agent
CPT/HCPCS: 82075; 99284

== ENCOUNTER 2018-02-04 20:16 | Inpatient (IN) | payer MEDICAID, OTHER ==
--- NOTE | 2018-02-04 21:01 | ED ---
Psych HPI - General Source: patient, police Mode of arrival: ambulatory <Panfilo Zhou - Last Filed: 02/05/18 00:37> <Rocael Mcmahon - Last Filed: 02/05/18 02:22> - General Chief Complaint: Psychiatric Symptoms Stated Complaint: Mental Health Eval Time Seen by Provider: 02/04/18 20:39 - History of Present Illness Initial Comments: Patient is a 47-year-old female has been petitioned by the court and sent in for psychiatric evaluation. Per the petition, the patient has a history of mental illness and has not been taking her medication and unable to care for herself. She also claims to be a [place] survivor per the petition. The patient denies any significant complaints other than fatigue and states that she has been indeed hearing voices but will not disclose what they have been telling her. However, she denies any suicidal or homicidal ideation. (Panfilo Zhou) - Related Data Home Medications Medication Instructions Recorded Confirmed Hydrochlorothiazide [Hydrodiuril] 25 mg PO DAILY 01/28/18 02/04/18 [place] Carbonate 600 mg PO HS 01/28/18 02/04/18 Loratadine [Claritin] 10 mg PO DAILY 01/28/18 02/04/18 Lisinopril [Zestril] 10 mg PO BID 02/04/18 02/04/18 cloNIDine HCL [Catapres] 0.2 mg PO HS 02/04/18 02/04/18 hydrALAZINE HCL [Apresoline] 50 mg PO TID 02/04/18 02/04/18 Allergies Allergy/AdvReac Type Severity Reaction Status Date / Time acetaminophen [From Vicodin] Allergy Unknown Verified 02/04/18 20:28 codeine Allergy Rash/Hives Verified 02/04/18 20:28 hydrocodone bitartrate Allergy Unknown Verified 02/04/18 20:28 [From Vicodin] Review of Systems ROS Other: All systems not noted in ROS Statement are negative. <Panfilo Zhou - Last Filed: 02/05/18 00:37> ROS Other: All systems not noted in ROS Statement are negative. <Rocael Mcmahon - Last Filed: 02/05/18 02:22> ROS Statement: Those systems with pertinent positive or pertinent negative responses have been documented in the HPI. Constitutional: Negative for chills,and fever. Positive for fatigue HENT: Negative for congestion. Respiratory: Negative for chest tightness, shortness of breath and wheezing. Negative for cough Cardiovascular: Negative for chest pain and palpitations. Gastrointestinal: Negative for abdominal pain. Negative for abdominal distention , diarrhea, nausea and vomiting. Genitourinary: Negative for dysuria. Musculoskeletal: Negative for back pain, neck pain and neck stiffness. Skin: Negative for color change. Neurological: Negative for dizziness, speech difficulty, weakness and light- headedness. Psychiatric/Behavioral: Negative for agitation and confusion. Negative for anxiety. Positive for auditory hallucinations (Panfilo Zhou) Past Medical History Past Medical History: Asthma, Diabetes Mellitus, Hypertension, Thyroid Disorder Additional Past Medical History / Comment(s): schizophrenia, psychotic disorder , anxiety History of Any Multi-Drug Resistant Organisms: None Reported Past Surgical History: Tonsillectomy Additional Past Anesthesia/Blood Transfusion Reaction / Comment(s): no previous blood transfusions Past Psychological History: Anxiety, Depression, Schizoaffective Disorder Smoking Status: Current every day smoker Past Alcohol Use History: None Reported Past Drug Use History: Marijuana - Past Family History Mother Family Medical History: Hypertension <Panfilo Zhou - Last Filed: 02/05/18 00:37> General Exam Limitations: no limitations <Panfilo Zhou - Last Filed: 02/05/18 00:37> <Rocael Mcmahon - Last Filed: 02/05/18 02:22> - General Exam Comments Initial Comments: Constitutional: Pt is oriented to person, place, and time. Pt appears well- developed and well-nourished. No distress. HENT: Head: Normocephalic and atraumatic. Eyes: EOM are normal. Neck: Normal range of motion. Neck supple. Cardiovascular: Normal rate, regular rhythm, S1 normal, S2 normal and normal heart sounds. Exam reveals no gallop and no friction rub. No murmur heard. Pulmonary/Chest: Effort normal and breath sounds normal. No tachypnea and no bradypnea. No respiratory distress. No wheezes or rales noted. Abdominal: Soft. Bowel sounds are normal. Pt exhibits no shifting dullness, no distension, no pulsatile liver, no fluid wave, no abdominal bruit and no ascites. There is no tenderness. There is no rigidity, no rebound, no guarding, no tenderness at McBurney's point and negative Rodriguez's sign. Musculoskeletal: Normal range of motion. Neurological: Pt is alert and oriented to person, place, and time. No cranial nerve deficit. Skin: Skin is warm and dry. No rash noted. Pt is not diaphoretic. No erythema. No pallor. Psychiatric: Pt has a normal mood and affect is flat. Pt behavior is normal. Patient admits to hearing auditory voices (Panfilo Zhou) Course <Panfilo Zhou - Last Filed: 02/05/18 00:37> <Rocael Mcmahon - Last Filed: 02/05/18 02:22> Vital Signs 02/04/18 20:24 Temperature 98.7 F Pulse Rate 90 Respiratory 16 Rate Blood Pressure 117/79 O2 Sat by Pulse 97 Oximetry - Reevaluation(s) Reevaluation #1: 02/05/18 00:37 Patient still resting in bed comfortably. Awaiting decision from psychiatric services. (Panfilo Zhou) Medical Decision Making <Panfilo Zhou - Last Filed: 02/05/18 00:37> <Rocael Mcmahon - Last Filed: 02/05/18 02:22> - Medical Decision Making Patient is been cleared medically and awaiting formal decision for psychiatric services. Case will be signed out to the nighttime physician. (Panfilo Zhou ) Patient was seen by mental health services who will admit patient. Patient reevaluated by myself, Dr. Mcmahon. Patient admits to not taking her medication and having hallucinations. Positive clinical certificate completed. (Rocael Mcmahon ) Disposition <Panfilo Zhou - Last Filed: 02/05/18 00:37> Decision Time: 02:22 <Rocael Mcmahon - Last Filed: 02/05/18 02:22> Clinical Impression: Auditory hallucinations, Schizophrenia Disposition: TRANSFER TO PSYCH HOSP/UNIT
[2018-02-05] MEDS ORDERED: MAG HYDROX/AL HYDROX/SIMETH 30 ML CUP PO PRN (01:46)
[2018-02-05 02:57] VITALS: BMI 35.9
[2018-02-05 08:58] LABS: Basophils # (A) 0.1 k/uL (0-0.2); Basophils % (A) 0 %; Eosinophils # (A) 0.2 k/uL (0-0.7); Eosinophils % (A) 1 %; HCT 46.3 % (34.0-46.0); HGB 15.5 gm/dL (11.4-16.0); Lymphocytes # (A) 2.5 k/uL (1.0-4.8); Lymphocytes % (A) 14 %; MCH 29.9 pg (25.0-35.0); MCHC 33.5 g/dL (31.0-37.0); MCV 89.2 fL (80.0-100.0); Mean Platelet Volume 6.8; Monocytes # (A) 0.7 k/uL (0-1.0); Monocytes % (A) 4 %; Neutrophils # (A) 14.8 k/uL (1.3-7.7); Neutrophils % (A) 80 %; Platelet Count 307 k/uL (150-450); RBC 5.19 m/uL (3.80-5.40); RDW 14.5 % (11.5-15.5); WBC 18.5 k/uL (3.8-10.6)
[2018-02-05 10:12] LABS: Lithium 1.1 mmol/L
[2018-02-05] MEDS: ARIPiprazole 5 MG TAB PO SCH (16:47)
--- NOTE | 2018-02-05 16:58 | P.MDCNMH ---
History of Present Illness H&P Date: 02/05/18 Chief Complaint: Hearing voices Patient is a 47 old female with a known history of hypertension, hypothyroidism and schizoaffective disorder was brought to the hospital since the patient has been hearing wises for the past 1 week. Patient was petitioned by the court and sent in for psychiatric evaluation. Patient has not been taking her medications for the past 1 week. Patient is unable to take care of herself. She also claims to be a [place] survivor per the petition. The patient denies any significant complaints other than fatigue and states that she has been indeed hearing voices but will not disclose what they have been telling her. However, she denies any suicidal or homicidal ideation. Patient denied any complaints of chest pain or shortness of breath. Complaints of cough with small whitish sputum production. No dysuria or hematuria. No abdominal pain. No nausea vomiting or diarrhea. WBC 18.5 TSH within normal limits. Patient denied any history of diabetes. Patient does smoke on a daily basis. Review of Systems Constitutional: Patient denies any fever or chills . No generalized weakness or weight loss. Abdomen: Patient denied nausea vomiting and diarrhea and abdominal pain. Cardiovascular: Patient denies any chest pain or short of breath no palpitations. Respiratory: patient denied any cough is from production. No shortness of breath Neurologic: Patient denied any numbness or tingling headache. Musculoskeletal: Patient denies any complaints of joint swelling or deformity. Skin: Negative Psychiatric: Hearing voices Endocrine: No heat or cold intolerance. No recent weight gain. Genitourinary: No dysuria or hematuria. Complete review of systems could not be obtained from the patient since the patient is a poor historian. Past Medical History Past Medical History: Asthma, Diabetes Mellitus, Hypertension, Thyroid Disorder Additional Past Medical History / Comment(s): schizophrenia, psychotic disorder , anxiety History of Any Multi-Drug Resistant Organisms: None Reported Past Surgical History: Tonsillectomy Additional Past Anesthesia/Blood Transfusion Reaction / Comment(s): no previous blood transfusions Past Psychological History: Anxiety, Depression, Schizoaffective Disorder Additional Psychological History / Comment(s): and psychotic disorder per Dr Rajput office Smoking Status: Current every day smoker Past Alcohol Use History: None Reported Past Drug Use History: None Reported, Marijuana - Past Family History Mother Family Medical History: Hypertension Daughter(s) Family Medical History: No Reported History Father Family Medical History: Hypertension Medications and Allergies Home Medications Medication Instructions Recorded Confirmed Type Hydrochlorothiazide [Hydrodiuril] 25 mg PO DAILY 01/28/18 02/04/18 History [place] Carbonate 600 mg PO HS 01/28/18 02/04/18 History Loratadine [Claritin] 10 mg PO DAILY 01/28/18 02/04/18 History Lisinopril [Zestril] 10 mg PO BID 02/04/18 02/04/18 History cloNIDine HCL [Catapres] 0.2 mg PO HS 02/04/18 02/04/18 History hydrALAZINE HCL [Apresoline] 50 mg PO TID 02/04/18 02/04/18 History Allergies Allergy/AdvReac Type Severity Reaction Status Date / Time acetaminophen [From Vicodin] Allergy Unknown Verified 02/05/18 03:01 codeine Allergy Rash/Hives Verified 02/05/18 03:01 hydrocodone bitartrate Allergy Unknown Verified 02/05/18 03:01 [From Vicodin] Physical Exam Vitals: Vital Signs Temp Pulse Pulse Resp BP BP Pulse Ox 02/05/18 02:49 97.8 F 80 16 100/63 98 02/05/18 02:32 97 F L 88 16 120/77 97 02/04/18 20:24 98.7 F 90 16 117/79 97 Intake and Output 02/05/18 02/05/18 02/05/18 06:59 14:59 22:59 Other: Weight 92.079 kg PHYSICAL EXAMINATION: Patient is lying in the bed comfortably, no acute distress, awake alert and oriented. Mild confusion. HEENT: Normocephalic. Neck is supple. Pupils reactive. Nostrils clear. Oral cavity is moist. Ears reveal no drainage. Neck reveals no JVD, carotid bruits, or thyromegaly. CHEST EXAMINATION: Trachea is central. Symmetrical expansion. Lung wadsworth clear to auscultation and percussion. CARDIAC: Normal S1, S2 with no gallops. No murmurs ABDOMEN: Soft. Bowel sounds normal. No organomegaly. No abdominal bruits. Extremities: reveal no edema. No clubbing or cyanosis Neurologically awake, alert, oriented x3 with well-coordinated movements. No focal deficits noted Skin: No rash or skin lesions. Psychiatric: Coperative. Could not base is completely Musculoskeletal: No joint swelling or deformity. Normal range of motion. Cranial Nerve Examination - Cranial Nerves Cranial Nerve I- Olfactory: Intact Cranial Nerve II- Optic: Intact Cranial Nerve III- Oculomotor: Intact Cranial Nerve IV- Trochlear: Intact Cranial Nerve V- Trigeminal: Intact Cranial Nerve - Abducens: Intact Cranial Nerve VII- Facial: Intact Cranial Nerve VIII- Auditory: Intact Cranial Nerve IX- Glossopharyngeal: Intact Cranial Nerve X- Vagus: Intact Cranial Nerve XI- Accessory: Intact Cranial Nerve XII- Hypoglossal: Intact Results CBC & Chem 7: 02/05/18 07:54 Labs: Abnormal Lab Results - Last 24 Hours (Table) 02/05/18 02/05/18 Range/Units 07:54 07:54 WBC 18.5 H (3.8-10.6) k/uL Hct 46.3 H (34.0-46.0) % Neutrophils # 14.8 H (1.3-7.7) k/uL Triglycerides 234 H (<150) mg/dL HDL Cholesterol 29 L (40-60) mg/dL Assessment and Plan Assessment: Acute psychosis NOS Hypertension. Patient does take hydrochlorothiazide, lisinopril, hydralazine and clonidine at home. Currently blood pressure is not elevated Hypothyroidism Schizoaffective disorder, bipolar disorder, anxiety depression Noncompliance with medications Leukocytosis. Rule out any source of infection. Asthma stable Nicotine addiction Plan: Blood pressure is not elevated. Will hold blood pressure medications at this time. will check his B A1c. TSH within normal limits. Follow-up urinalysis. Currently denied any worsening cough or shortness of breath. No chest pain. We 'll repeat CBC and monitor for infection. Continue with psychiatric management and follow up closely. Further recommendations based on the clinical course. Thank you for your consult Time with Patient: Greater than 30
--- NOTE | 2018-02-05 18:13 | HP ---
HISTORY AND PHYSICAL DATE OF ADMISSION: 02/05/2018. IDENTIFYING DATA: This is a 47-year-old single female patient. HISTORY OF PRESENT ILLNESS: Ms. Gordon presents to the inpatient psychiatric unit on an involuntary basis. Petition was done for mental health treatment by a mental health specialist, relaying, "Najma has not been taking medications, causing her to experience auditory hallucinations which are telling her she is in imminent harm, she should not take her medications or interact with treatment team. She reports confusion and appears to be disoriented. Najma's mother and neighbor have reportedly told them she is not eating/drinking which is causing increased concern regarding her physical health." The patient reports that she was at home and the police came and said she needed to go. She is not exactly sure why. She says she does want to feel better. She says within the past week she has been hearing someone telling her not to go outside and telling her to do things. Nothing in particular, but then does state that the voice was telling her not to take her medication. She denies any significant recent depression. Denies any recent thoughts of harm to self or others. PSYCHIATRIC HISTORY: She has had 2 prior admissions here. She has been in treatment with [facility]. She says she sees Dr. Adkins every 6 months. She makes reference to having been on lithium and felt she did well with it and Risperdal, she had side effects where she was shaking like a leaf. Her admission 2 times ago here, she was on the Risperdal and then the last admission was on Seroquel 200 mg at bedtime as well as Xanax. She has had diagnosis of schizophrenia. She denies any history of suicide attempts. PSYCHIATRIC FAMILY HISTORY: None that she is aware of. MEDICAL HISTORY: Hypertension. CURRENT MEDICATIONS: 1. Maalox p.r.n. 2. Home medications have included: a. Apresoline. b. Catapres. c. Claritin. d. Zestril. e. HydroDIURIL and. f. [place] carbonate. SOCIAL HISTORY: She lives with her daughter, who is 14. The patient states that when she left yesterday, her daughter was going to go to her friends. She has never been . She is not on disability. She is not working. DRUG AND ALCOHOL HISTORY: In the past, alcohol was an issue. She has been years without it. MENTAL STATUS EXAM: She is alert, overall cooperative with the interview. Her speech is fluent. Her answers are brief. She has restricted affect. She denies any current auditory or visual hallucinations, denies any thoughts of harm to self or others. Her mood is described as "I do not know." She relays that she is surprised about being here. I do not note any significant disorientation or significant memory disturbance. Her insight has some limitations. Her judgment shows evidence of recent impairment. IMPRESSION: Schizophrenia, rule out history of alcohol use disorder. PLAN/RECOMMENDATIONS: The patient will be admitted to the inpatient psychiatric unit at [facility] on a voluntary basis. She is agreeable to signed an adult form of voluntary. Baseline laboratory workup will be done on the patient. Medical consultation will be ordered. She will participate in group and activities therapy. We will initiate Abilify. We will go with monotherapy at this point time 5 mg daily to help with psychosis symptoms. I did not see a history of lithium carbonate during her previous admissions. It is listed as a home medication and patient did relay that she has been on it, but is unclear in terms of when lithium was started and how long or if she has been taking it. Will check a lithium level in the morning, consider re-initiation if felt would be added benefit. We will look into any support system. Estimated length of stay is 5-7 days. Prognosis is guarded. I will continue to cover this patient over the weekend. POP / OBINNAN: [id number] /
[2018-02-05 18:50] LABS: Hemoglobin A1C 5.7 % (4.0-6.0)
[2018-02-06] MEDS: ARIPiprazole 5 MG TAB PO SCH (09:11)
[2018-02-06 10:23] LABS: Albumin 4.5 g/dL (3.5-5.0); Calcium 9.8 mg/dL (8.4-10.2); Potassium 3.3 mmol/L (3.5-5.1); Total Bilirubin 0.4 mg/dL (0.2-1.3); Total Protein 7.7 g/dL (6.3-8.2)
[2018-02-06 11:07] LABS: Appearance,Urine Cloudy (Clear); Bacteria,Urine Many /hpf; Bilirubin,Urine Negative (Negative); Blood,Urine Negative (Negative); Color,Urine Yellow; Glucose,Urine (UA) Negative (Negative); Ketones,Urine 1+ (Negative); Leukocyte Esterase,Urine Trace (Negative); Mucus,Urine Rare /hpf; Nitrite,Urine Negative (Negative); Protein,Urine Trace (Negative); RBC,Urine 2 /hpf (0-5); Specific Gravity,Urine 1.014 (1.001-1.035); Squamous Epithelial Cell,Urine 3 /hpf (0-4); Urobilinogen,Urine <2.0 mg/dL (<2.0); WBC,Urine 3 /hpf (0-5)
[2018-02-06 11:17] LABS: Amphetamine Screen,Urine Not Detected (NotDetected); Barbiturate Screen,Urine Not Detected (NotDetected); Benzodiazepines Screen,Urine Not Detected (NotDetected); Cocaine Screen,Urine Not Detected (NotDetected); Methadone Screen, Urine Not Detected (NotDetected); Opiate Screen,Urine Not Detected (NotDetected); Oxycodone Screen, Urine Not Detected (NotDetected); Phencyclidine Screen,Urine Not Detected (NotDetected); Tricyclic Antidepressant,Urine Not Detected (NotDetected); Urn Cannabinoid Scrn Detected (NotDetected)
--- NOTE | 2018-02-06 13:32 | P.PN ---
Progress Note - Text Progress Note Date: 02/06/18 Interval history: Patient seen in cross coverage again today. She seems to be tolerating the Abilify fine. She does not voice any adverse side effects. We did discuss the dosing and she defers further titration at this point in time. She makes reference to having had side effects with different medications in the past. She is found in the dining room eating her lunch. She is cooperative to come to the interview room. Mental status exam: She is alert and cooperative with the interview. Her speech is fluent, her thought processes are organized. She denies any hallucinations. She does not voice any thoughts of harm to self or others. She does not show any agitation. Mood [place] she does not present with any manic symptomatology. Plan: We'll maintain current psychotropic medication regimen. Consider further titration of Abilify for likely more therapeutic maintenance dose, monitor for any medication side effects and her ongoing response.
[2018-02-07] MEDS: ARIPiprazole 5 MG TAB PO SCH (09:01)
--- NOTE | 2018-02-07 11:40 | P.PN ---
Subjective Patient's lab reviewed found to be hypokalemic renal failure urinary infection. Potassium supplement ordered consultation with nephrology regarding acute renal failure Objective - Vital Signs Vital signs: Vital Signs Temp 98.3 F 02/07/18 06:26 Pulse 72 02/07/18 06:26 Resp 16 02/07/18 06:26 BP 113/55 02/07/18 06:26 Pulse Ox 98 02/05/18 02:49 - Constitutional General appearance: Present: mild distress - EENT Eyes: Present: PERRLA Ears: bilateral: normal - Neck Neck: Present: normal ROM - Respiratory Respiratory: bilateral: CTA - Cardiovascular Rhythm: regular - Gastrointestinal General gastrointestinal: Present: soft - Integumentary Integumentary: Present: normal - Neurologic Neurologic: Present: CNII-XII intact - Musculoskeletal Musculoskeletal: Present: gait normal - Psychiatric Psychiatric: Present: A&O x's 3, appropriate affect, intact judgment & insight - Labs CBC & Chem 7: 02/05/18 07:54 02/06/18 09:48 Assessment and Plan Plan: Assessment Acute psychosis Hypertension Schizophrenic disorder bipolar disorder/anxiety/depression Leukocytosis nicotine addiction urinary tract infection Acute renal failure Hypokalemia Plan Urine culture Nephrology consultation Repeat labs in a.m. Treat urinary tract infection
--- NOTE | 2018-02-07 11:57 | P.PN ---
Progress Note - Text Progress Note Date: 02/07/18 Patient was seen for a follow-up examination. She was sent here on a pickup order with the report that she has not been complying with treatment. Her lithium level was 1.1, drug screening positive for cannabis, urinalysis is suggestive of UTI, increased triglycerides, AST, glucose, creatinine, BUN, leukocytosis hemoconcentration with elevated neutrophils, decreased sodium potassium chloride etc. She was seen by the medicine Department and was started on antibiotics and potassium this morning. Her blood pressure has been low. But, she does not complain of feeling weak or dizziness. She is fairly cooperative and has not been violent or combative. But the staff report that she can be testy at times. This is rather an obese ambulatory female of [place] origin. She is cooperative. She does not show any psychomotor agitation or retardation. Her speech is soft short and goal directed. Her mood is dull and affect is appropriate to the thought content. She denies suicide and homicide thoughts, hallucinations and delusional thinking. She is oriented with adequate memory concentration general knowledge etc. Plan: Continue Abilify 5 mg a day, groups and other therapies. Adjust the dose of medication or add medications as needed.
[2018-02-07] MEDS: CEPHALEXIN 500 MG CAP PO SCH ×3 (14:10→21:22)
[2018-02-07] MEDS: POTASSIUM CHLORIDE ER 20 MEQ TAB.ER PO SCH (17:48)
[2018-02-08] MEDS: POTASSIUM CHLORIDE ER 20 MEQ TAB.ER PO SCH (08:58)
[2018-02-08] MEDS: CEPHALEXIN 500 MG CAP PO SCH ×4 (08:59→21:21)
[2018-02-08] MEDS: ARIPiprazole 5 MG TAB PO SCH (08:59)
[2018-02-08] MEDS ORDERED: POTASSIUM CHLORIDE ER 20 MEQ TAB.ER PO SCH (09:00)
[2018-02-08 09:56] LABS: Basophils # (A) 0.1 k/uL (0-0.2); Basophils % (A) 0 %; Eosinophils # (A) 0.1 k/uL (0-0.7); Eosinophils % (A) 1 %; HCT 45.1 % (34.0-46.0); HGB 14.4 gm/dL (11.4-16.0); Lymphocytes # (A) 1.7 k/uL (1.0-4.8); Lymphocytes % (A) 16 %; MCV 90.7 fL (80.0-100.0); Mean Platelet Volume 6.9; Monocytes # (A) 0.6 k/uL (0-1.0); Monocytes % (A) 5 %; Neutrophils # (A) 8.2 k/uL (1.3-7.7); Neutrophils % (A) 77 %; Platelet Count 316 k/uL (150-450); RBC 4.98 m/uL (3.80-5.40); RDW 14.2 % (11.5-15.5); WBC 10.7 k/uL (3.8-10.6)
[2018-02-08 10:37] LABS: Albumin 4.2 g/dL (3.5-5.0); Calcium 9.6 mg/dL (8.4-10.2); Potassium 3.7 mmol/L (3.5-5.1); Total Bilirubin 0.3 mg/dL (0.2-1.3); Total Protein 7.1 g/dL (6.3-8.2)
--- NOTE | 2018-02-08 12:36 | P.PN ---
Progress Note - Text Progress Note Date: 02/08/18 Patient was seen for a follow-up examination. She does not have any complaint. She has been staying by herself and her attendance in group activities has not been regular. She was encouraged to attend groups. This is an obese ambulatory female of [place] descent. She is polite and cooperative. She does not show any psychomotor agitation or retardation. Her speech is soft short and goal directed. Her mood is euthymic and affect is appropriate to the thought content. She denies hallucinations, delusional thinking, suicide and homicide thoughts. She is oriented with good memory general knowledge etc. Plan: Continue Abilify groups and other activities.
--- NOTE | 2018-02-08 16:22 | CONS ---
CONSULTATION REASON FOR CONSULT: Renal failure. HISTORY OF PRESENT ILLNESS: The patient is a 47-year-old female seen in the mental health unit. The patient was admitted to the hospital on 02/04/2018 for schizophrenia. The patient denies any prior history of kidney diseases. Her serum creatinine was 2.3 mg/dL on 02/06/2018 and review of previous lab shows serum creatinine of 1.1 and 1.3 mg/dL in June of 2017 and January of 2017. The patient's blood pressure had previously been elevated. It is now slightly on the lower side with systolic as low as 90 on 02/05/2018. Currently patient is not on any antihypertensive medications. She had been on hydrochlorothiazide and Zestril and clonidine and hydralazine prior to admission, but I believe she was not taking any of her medications. The patient has not had any contrast studies and has not had any nonsteroidal anti-inflammatory agents. There is no ongoing nausea, vomiting, diarrhea or abdominal pain. Patient states she has been voiding well. PAST MEDICAL HISTORY: Asthma, type 2 diabetes, hypertension, hypothyroidism, schizophrenia, anxiety. PAST SURGICAL HISTORY: Tonsillectomy. SOCIAL HISTORY: Positive for smoking. Previous history of marijuana use. MEDICATIONS: Medications at home prior to admission: Clonidine, hydralazine, Zestril, Claritin, lithium, hydrochlorothiazide. ALLERGIES: Include ACETAMINOPHEN, VICODIN, CODEINE. REVIEW OF SYSTEMS: As per HPI. Other systems negative. PHYSICAL EXAMINATION: Patient is comfortable, awake, not in any acute distress. Blood pressure was 119/75, heart rate 87 per minute. Patient is afebrile. Examination of the heart: S1, S2. Examination lungs: Bilateral breath sounds are heard. Abdomen is soft, nontender. Examination lower extremities shows no evidence of edema. VOICE STUDIES DIRECTOR exam is grossly intact. Patient moving all 4 extremities. LAB: Show sodium 140, potassium 3.7, BUN 24, serum creatinine 1.57, hemoglobin 14.4 g/dL. UA shows 1+ ketones, trace protein, WBCs 3. ASSESSMENT: 1. Acute kidney injury, most likely prerenal associated with hypotension and hypoperfusion. Currently improved. Serum creatinine is down to 1.57. Her baseline is about 1.1-1.0. Continue off of all antihypertensive medications. Patient is encouraged to increase oral fluid intake. I will hold off on IV fluids as long as renal function continues to improve. 2. History of hypertension. Currently blood pressure is staying low. 3. Hypokalemia, status post replacement. 4. Schizophrenia, currently in the acute mental health unit. 5. Chronic kidney disease, most likely secondary to nephrosclerosis. Lowest creatinine was 0.9 in 2016. Otherwise, mainly around 1-1.1 mg/dL, most of 2017. PLAN: Encourage increased oral intake, particularly fluids and check ultrasound of the kidneys. No plans for IV hydration yet. Thank you for this consultation. We will continue to follow the patient with you during her hospitalization. MMODL / IJN: [id number] /
--- NOTE | 2018-02-08 17:37 | US ---
EXAMINATION TYPE: US kidneys/renal and bladder DATE OF EXAM: 02/08/2018 COMPARISON: CT CLINICAL HISTORY: renal failure; inpatient emptied bladder prior to US EXAM MEASUREMENTS: Right Kidney: 9.9 x 5.2 x 3.6 cm Left Kidney: 10.0 x 5.6 x 5.0 cm Post Void Residual Volume: NA Right Kidney: No hydronephrosis or masses seen Left Kidney: No hydronephrosis or masses seen Bladder: small amount of fluid noted within as not prepped for assessment Bilateral Jets seen: no IMPRESSION: Negative exam. No evidence of renal mass or obstruction. Kidneys are relatively small but appear to h ave normal echogenicity.
[2018-02-09] MEDS: ARIPiprazole 5 MG TAB PO SCH (08:50)
[2018-02-09] MEDS: CEPHALEXIN 500 MG CAP PO SCH ×4 (08:51→21:20)
--- NOTE | 2018-02-09 11:06 | P.PN ---
Progress Note - Text Progress Note Date: 02/09/18 Patient was seen for follow-up examination. She continues to spend lots of time in bed and attends groups only at times. But, she insists that she is not depressed confused or tired. She said she has headache and she is trying to get rid of it by laying down. She was advised to take Tylenol or Motrin for it. She insists that she is doing okay and does not need to get her Abilify increased or restarted on lithium. She has not shown any bizarre agitated or violent behavior. This is an obese ambulatory female of [place] descent. She is polite and cooperative. She does not show any psychomotor agitation or retardation. Her speech is spontaneous and goal-directed. Her mood is euthymic and affect is appropriate. She continues to deny suicide and homicide thoughts, hallucinations and delusional thinking. She is oriented with adequate memory concentration etc. Plan: Continue Abilify 5 mg a day, groups and other activities. She is scheduled for a family meeting tomorrow.
--- NOTE | 2018-02-09 16:32 | PN ---
PROGRESS NOTE Patient is seen for followup for acute kidney injury, which appears to have been mainly prerenal associated with hypotension and hypoperfusion. Serum creatinine had gone up to 2.3. It is down to 1.57 as of yesterday. Patient does appear to have underlying chronic kidney disease with baseline creatinine about 1.1 to 1.3 mg/dL. Etiology is likely nephrosclerosis. UA did show trace protein. Patient has a history of hypertension; however, she has not been requiring any of her anti-hypertensive medications lately. In fact, her blood pressure has been running low. On examination today, blood pressure is 137/72, heart rate 69 per minute. She is afebrile. Patient appears fairly euvolemic, with no evidence of edema in her lower extremities. Labs show sodium 140 from yesterday, potassium 3.7, serum creatinine 1.57 from 02/08/2018. ASSESSMENT: 1. Acute kidney injury associated with hypotension and hypoperfusion, currently improved. Patient is encouraged to continue to maintain good oral intake, particularly fluids. I will repeat another set of labs tomorrow. 2. History of hypertension, blood pressure currently staying on the lower side. Will continue to hold off on all anti-hypertensive medications. 3. Hypokalemia, status post replacement. Although patient is not on any diuretics, she is still requiring potassium supplementation. I will check a renal aldosterone level to rule out any underlying secondary causes of hypertension. Patient will likely benefit from spironolactone if she remains hypokalemic. 4. Schizophrenia with acute exacerbation, currently in inpatient psych. 5. Chronic kidney disease secondary to nephrosclerosis with baseline creatinine about 1.1 to 1.3 mg/dL NKF stage III. PLAN: Repeat labs in a.m. Check renal aldosterone level. Continue to encourage good oral intake and continue to hold off on anti-hypertensive medications for now. MMODL / IJN: [id number] /
[2018-02-10 06:58] VITALS: BP 112/56; PULSE 71; RESP 16; TEMP 98.4
--- NOTE | 2018-02-10 08:57 | P.DS ---
Providers Date of admission: 02/05/18 01:40 Expected date of discharge: 02/10/18 Attending physician: Melquiades Ritter Consults: 02/05/18 01:46 Consult Physician Routine Consulting Provider: Anthony Ashford Consult Reason/Comments: medical management Do you want consulting provider notified?: Yes, Notify in am 02/07/18 11:32 Consult Physician Urgent Consulting Provider: Vince Rocha Consult Reason/Comments: renal failure Do you want consulting provider notified?: Yes Primary care physician: Anthony Ashford Hospital Course: Patient had her psychiatric evaluation done by Dr. Pérez, had her physical examination and psychosocial evaluation. She was started on Abilify 5 mg at bedtime after the psychiatric evaluation. She was started on Keflex since she had urinary tract infection by the medical service. She tolerated both these medications well without any adverse effects. She agreed to continue with her outpatient treatment as recommended. She attended some of the groups, interacted with some of the peers and staff and continued to deny suicide and homicide thoughts. In view of all these it was agreed to discharge her. Condition on discharge: This is rather an obese ambulatory female of [place] descent with adequate hygiene. She is polite and cooperative. She does not show any psychomotor agitation or retardation. Her speech is spontaneous relevant and goal-directed. He continues to deny suicide and homicide thoughts. She also denies hallucinations and delusional thinking. She is oriented with adequate memory concentration general fund of knowledge etc. She denies any current urinary symptoms. Her insight and judgment have improved. Diagnosis on discharge: Schizophrenia F 20.9. ALLERGY to acetaminophen, codeine, hydrocodone bitartrate. UTI, resolving. History of hypertension. Hyperlipidemia. Impaired renal function. 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 Patient Condition at Discharge: Stable Plan - Discharge Summary Discharge Rx Participant: No New Discharge Prescriptions: New ARIPiprazole [Abilify] 5 mg PO DAILY 30 Days #30 tab Cephalexin [Keflex] 500 mg PO QID 3 Days #12 cap Continue Loratadine [Claritin] 10 mg PO DAILY Discontinued Hydrochlorothiazide [Hydrodiuril] 25 mg PO DAILY [place] Carbonate 600 mg PO HS hydrALAZINE HCL [Apresoline] 50 mg PO TID cloNIDine HCL [Catapres] 0.2 mg PO HS Lisinopril [Zestril] 10 mg PO BID Discharge Medication List Loratadine [Claritin] 10 mg PO DAILY 01/28/18 [History] ARIPiprazole [Abilify] 5 mg PO DAILY 30 Days #30 tab 02/10/18 [Rx] Cephalexin [Keflex] 500 mg PO QID 3 Days #12 cap 02/10/18 [Rx] Follow up Appointment(s)/Referral(s): Anthony Ashford MD [Primary Care Provider] - 1-2 days
[2018-02-10] MEDS: CEPHALEXIN 500 MG CAP PO SCH (09:01)
[2018-02-10] MEDS: ARIPiprazole 5 MG TAB PO SCH (09:01)
[2018-02-10 09:55] LABS: Calcium 9.5 mg/dL (8.4-10.2); Potassium 3.9 mmol/L (3.5-5.1)
== END 2018-02-10 09:47 | disposition home or self-care (01) | DRG 885 ==
LOC: EC 20:16 → 3MHU 02-05 01:40
PROVIDERS: ADMIT Psychiatry & Neurology Psychiatry; ATTEND Psychiatry & Neurology Psychiatry
DX: F20.9 Schizophrenia, unspecified (principal); N17.9 Acute kidney failure, unspecified; N39.0 Urinary tract infection, site not specified; J45.909 Unspecified asthma, uncomplicated; E11.9 Type 2 diabetes mellitus without complications; E03.9 Hypothyroidism, unspecified; F41.9 Anxiety disorder, unspecified; F17.200 Nicotine dependence, unspecified, uncomplicated; E87.6 Hypokalemia; I12.9 Hypertensive chronic kidney disease with stage 1 through stage 4 chronic kidney disease, or unspecified chronic kidney disease; E11.22 Type 2 diabetes mellitus with diabetic chronic kidney disease; E66.9 Obesity, unspecified; E78.5 Hyperlipidemia, unspecified; F31.9 Bipolar disorder, unspecified; N18.3 Chronic kidney disease, stage 3 (moderate); Z79.899 Other long term (current) drug therapy; Z98.890 Other specified postprocedural states; Z88.6 Allergy status to analgesic agent; Z88.5 Allergy status to narcotic agent; Z82.49 Family history of ischemic heart disease and other diseases of the circulatory system; Z68.36 Body mass index [BMI] 36.0-36.9, adult
CPT/HCPCS: 76770; 80048; 80053; 80061; 80178; 80306; 81001; 82075; 82088; 83036; 84244; 84443; 85025; 87086; 99285

== ENCOUNTER → 2018-03-16 | Outpatient (CLI) | payer OTHER ==
--- NOTE | 2018-03-16 18:13 | US ---
EXAMINATION TYPE: US venous doppler duplex LE BI DATE OF EXAM: 03/16/2018 5:55 PM COMPARISON: NONE CLINICAL HISTORY: R60.0 Edema. SIDE PERFORMED: Bilateral TECHNIQUE: The lower extremity deep venous system is examined utilizing real time linear array sonog av with graded compression, doppler sonography and color-flow sonography. VESSELS IMAGED: External Iliac Vein (EIV) Common Femoral Vein Deep Femoral Vein Greater Saphenous Vein * Femoral Vein Popliteal Vein Small Saphenous Vein * Proximal Calf Veins, not seen due to body habitus and swelling (* superficial vessels) Patient of very large body habitus with extensive leg swelling, technically difficult and somewhat li mited study. Right Leg: Negative for DVT Left Leg: Negative for DVT IMPRESSION: Normal exam. No evidence of deep venous thrombosis.
== END | disposition home or self-care (01) ==
LOC: RADUSMAIN 16:51
PROVIDERS: ATTEND Physician Assistant
DX: R60.0 Localized edema (principal)
CPT/HCPCS: 93970

== ENCOUNTER → 2018-03-21 | Outpatient (CLI) | payer OTHER ==
--- NOTE | 2018-03-22 08:03 | US ---
EXAMINATION TYPE: US kidneys/renal and bladder DATE OF EXAM: 03/21/2018 COMPARISON: US 02/08/2018 CLINICAL HISTORY: N17.9 Acute kidney failure. EXAM MEASUREMENTS: Right Kidney: 10.8 x 3.9 x 4.9 cm Left Kidney: 11.0 x 4.8 x 4.4 cm Right Kidney: No hydronephrosis or masses seen Left Kidney: No hydronephrosis or masses seen Bladder: wnl Bilateral Jets seen: Yes There is no evidence for hydronephrosis at this point in time. No nephrolithiasis is seen. No keerthi s are identified. The urinary bladder is anechoic. Bilateral ureteral jets are seen. There is good cortical to medullary differentiation. IMPRESSION: No acute processes.
== END | disposition home or self-care (01) ==
LOC: RADUSMAIN 15:53
PROVIDERS: ATTEND Family Medicine
DX: N17.9 Acute kidney failure, unspecified (principal)
CPT/HCPCS: 76770